=== PATIENT | male | born 1945 | race Caucasian/White ===

== ENCOUNTER → 2016-10-01 | Outpatient (CLI) | payer MEDICARE, OTHER ==
[~2016-10-01] MED LIST: ASPIRIN ADULT L81 M2 PO; B12 INJ.,1000 MCG/M IM; FENOFIBRATE160 MG PO; SOTALOL HCL240 MG PO; VITAMIN D50000 I1 PO; ZETIA10 MG PO
[2016-10-01 10:18] LABS: HEMOGLOBIN 15.6 g/dL (14.1-18.0); LYMPH # 1.2 K/mm3 (0.7-4.5); LYMPH % 14.2 % (10-50)
[2016-10-01 11:18] LABS: BUN 13 mg/dL (7-18)
[2016-10-01 11:19] LABS: GFR (ESTIMATED) 60 ML/MIN (>60)
== END ==
LOC: LAB 09:50
PROVIDERS: Internal Medicine Adolescent Medicine
DX: I48.91 Unspecified atrial fibrillation (principal); E78.5 Hyperlipidemia, unspecified; E55.9 Vitamin D deficiency, unspecified